=== PATIENT | female | born 1995 | race Caucasian/White ===

== ENCOUNTER 2017-02-11 22:26 | Emergency (ER) | payer OTHER ==
[~2017-02-11 22:26] MED LIST: NORCO 5-325 TA1 EACH PO
[2017-02-12 01:15] LABS: HEMOGLOBIN 17.2 gm/dl (12.3-15.3); RED BLOOD COUNT 5.81 M/UL (4.00-5.10); WHITE BLOOD COUNT 13.6 K/UL (4.5-11.0)
[2017-02-12 01:46] LABS: BUN/CREATININE RATIO 19 (0-10)
== END 2017-02-12 10:15 | disposition home or self-care (01) ==
LOC: ER1 22:26
PROVIDERS: Emergency Medicine
DX: R07.9 Chest pain, unspecified (principal); R11.2 Nausea with vomiting, unspecified; R10.33 Periumbilical pain; R00.0 Tachycardia, unspecified
CPT/HCPCS: 36415; 71020; 80053; 80307; 81001; 83690; 84703; 85025; 85379; 85610; 85730; 87086; 93005; 96360; 96361; 99285; J7050; Q9963